=== PATIENT | male | born 1995 | race Hispanic/Latino ===

== ENCOUNTER 2019-06-04 00:06 | Emergency (ER) | payer OTHER ==
--- NOTE | 2019-06-04 08:27 | RAD ---
2 VIEWS RIGHT SHOULDER: Date: 06/04/19 INDICATION: Dislocation. FINDINGS: Limited evaluation as there are two provided frontal projections. The humeral head is located more me dially than typical overlying the scapular glenoid which may be on the basis of an anterior shoulder dislocation, although is limited on the provided views. Recommend clinical correlation in this regard . A discrete fracture is not identified. IMPRESSION: Medial location of the humeral head which may be on the basis of an anterior shoulder dislocation, li mited on the two provided views. Recommend clinical correlation. Imaging follow-up is also recommende d upon advent of alignment to exclude the possibility of associated osseous injury. POS: [facility]
== END 2019-06-04 01:27 | disposition home or self-care (01) ==
LOC: ERS 00:06
DX: S43.014A Anterior dislocation of right humerus, initial encounter (principal); W01.0XXA Fall on same level from slipping, tripping and stumbling without subsequent striking against object, initial encounter

== ENCOUNTER 2020-12-25 03:36 | Emergency (ER) | payer OTHER ==
[2020-12-25 04:14] LABS: Bilirubin Negative (Negative); Blood, Urine Negative (Negative); Clarity Clear (Clear); Glucose, Urine (Dipstick) Normal (Negative); Ketone, Urine Negative (Negative); Leukocyte Negative Leu/uL (Negative); Nitrite Negative (Negative); Protein, Urine (Dipstick) Negative (Neg-Trace); Specific Gravity, Urine 1.004 (1.002-1.036); Urobilinogen Normal mg/dL (Less than 2)
[2020-12-25 04:24] LABS: Amphetamine Not Detected (NotDetected); Barbiturates Screen Not Detected (NotDetected); Benzodiazepine Screen Not Detected (NotDetected); Cocaine Metabolite Screen Detected (NotDetected); Medtox Control Line Valid? VALID (VALID); Medtox Reader # READER 4; Methadone Not Detected (NotDetected); Methamphetamine Not Detected (NotDetected); Opiate Screen Not Detected (NotDetected); Oxycodone Screen Not Detected (NotDetected); Phencyclidine (PCP) Not Detected (NotDetected); THC/Cannabinoid Screen Not Detected (NotDetected); Tricyclic Screen Not Detected (NotDetected)
[2020-12-25 04:37] LABS: #Basophils 0.1 thou/uL (0.0-0.2); #Lymphocytes 1.9 thou/uL (1.20-3.40); #Monocytes 0.4 thou/uL (0.11-0.59); %Basophils 1.4 % (0.0-1.0); %Eosinophils 1.1 % (0.0-10.0); %Lymphocytes 42.7 % (21.0-51.0); %Monocytes 9.3 % (0.0-10.0); %Neutrophils 45.5 % (42.0-75.0); Hemoglobin 15.2 g/dL (14.0-18.0); Mean Corpuscular HGB CONC 34.5 g/dL (32.0-36.0); Mean Corpuscular Hemoglobin 35.2 pg (27.0-31.0); Mean Platelet Volume 6.4 fL (7.4-10.4); Platelet Count 362 thou/uL (130-400); RBC Distribution Width 13.2 % (11.5-14.5); Red Blood Cell (RBC) Count 4.33 mill/uL (4.70-6.10); White Blood Cell (WBC) Count 4.4 thou/uL (4.8-10.8)
[2020-12-25 04:49] LABS: Acetaminophen Less than 6.0 mcg/mL (10.0-30.0); Alcohol 359 mg/dL (Less than 10); Salicylate Less than 8.0 mg/dL (15.0-30.0)
[2020-12-25 04:51] LABS: ALT (SGPT) 15 U/L (8-55); AST (SGOT) 28 U/L (5-34); Albumin 4.3 g/dL (3.5-5.0); Alkaline Phosphatase 61 U/L (40-110); Anion Gap 11 mmol/L (10-20); BUN (Urea Nitrogen) 6 mg/dL (8.9-20.6); Bilirubin, Total 0.3 mg/dL (0.2-1.2); CK (CPK) 197 U/L (30-200); Calc. Creatinine Clearance 0 mL/min (70-130); Calcium 9.3 mg/dL (7.8-10.44); Carbon Dioxide 29 mmol/L (22-29); Chloride 104 mmol/L (98-107); Globulin 3.1 g/dL (2.4-3.5); Glucose 99 mg/dL (70-105); Potassium 3.9 mmol/L (3.5-5.1); Protein, Total 7.4 g/dL (6.0-8.3); Sodium 140 mmol/L (136-145)
== END 2020-12-25 05:00 ==
LOC: ERS 03:36
DX: R45.851 Suicidal ideations (principal); F10.129 Alcohol abuse with intoxication, unspecified; F17.290 Nicotine dependence, other tobacco product, uncomplicated; Y90.8 Blood alcohol level of 240 mg/100 ml or more
CPT/HCPCS: 36415; 80053; 80306; 80307; 81003; 82550; 84443; 85025; 93005

== ENCOUNTER 2021-04-15 23:24 | Emergency (ER) | payer SELFPAY ==
[2021-04-16 00:18] LABS: Bilirubin Negative (Negative); Blood, Urine Negative (Negative); Clarity Clear (Clear); Glucose, Urine (Dipstick) Normal (Negative); Ketone, Urine Negative (Negative); Leukocyte Negative Leu/uL (Negative); Nitrite Negative (Negative); Protein, Urine (Dipstick) Negative (Neg-Trace); Specific Gravity, Urine 1.006 (1.002-1.036); Urobilinogen Normal mg/dL (Less than 2)
[2021-04-16 00:27] LABS: Amphetamine Not Detected (NotDetected); Barbiturates Screen Not Detected (NotDetected); Benzodiazepine Screen Not Detected (NotDetected); Cocaine Metabolite Screen Detected (NotDetected); Methadone Not Detected (NotDetected); Methamphetamine Not Detected (NotDetected); Opiate Screen Not Detected (NotDetected); Oxycodone Screen Not Detected (NotDetected); Phencyclidine (PCP) Not Detected (NotDetected); THC/Cannabinoid Screen Detected (NotDetected); Tricyclic Screen Not Detected (NotDetected)
[2021-04-16 00:29] LABS: #Basophils 0.1 thou/uL (0.0-0.2); #Lymphocytes 2.4 thou/uL (1.20-3.40); #Monocytes 0.8 thou/uL (0.11-0.59); #Neutrophils 5.3 thou/uL (1.40-6.50); %Basophils 0.7 % (0.0-1.0); %Eosinophils 0.3 % (0.0-10.0); %Monocytes 9.1 % (0.0-10.0); %Neutrophils 61.9 % (42.0-75.0); Hemoglobin 17.7 g/dL (14.0-18.0); Mean Corpuscular HGB CONC 32.9 g/dL (32.0-36.0); Mean Corpuscular Hemoglobin 33.4 pg (27.0-31.0); Mean Platelet Volume 6.4 fL (7.4-10.4); Platelet Count 378 thou/uL (130-400); RBC Distribution Width 13.1 % (11.5-14.5); Red Blood Cell (RBC) Count 5.29 mill/uL (4.70-6.10); White Blood Cell (WBC) Count 8.5 thou/uL (4.8-10.8)
[2021-04-16 00:56] LABS: ALT (SGPT) 24 U/L (8-55); AST (SGOT) 26 U/L (5-34); Albumin 4.7 g/dL (3.5-5.0); Alkaline Phosphatase 78 U/L (40-110); Anion Gap 17 mmol/L (10-20); BUN (Urea Nitrogen) 6 mg/dL (8.9-20.6); Bilirubin, Total 1.3 mg/dL (0.2-1.2); Calc. Creatinine Clearance 0 mL/min (70-130); Calcium 10.1 mg/dL (7.8-10.44); Carbon Dioxide 28 mmol/L (22-29); Chloride 99 mmol/L (98-107); Globulin 3.7 g/dL (2.4-3.5); Glucose 100 mg/dL (70-105); Protein, Total 8.4 g/dL (6.0-8.3); Sodium 140 mmol/L (136-145)
[2021-04-16 01:06] LABS: Acetaminophen Less than 6.0 mcg/mL (10.0-30.0); Alcohol 267 mg/dL (Less than 10); CK (CPK) 142 U/L (30-200); Salicylate Less than 8.0 mg/dL (15.0-30.0)
[2021-04-16 02:17] LABS: SARS-CoV-2 NAA Rapid Test DETECTED (NotDetected)
== END 2021-04-16 13:10 | disposition home or self-care (01) ==
LOC: ERS 23:24
DX: U07.1 COVID-19 (principal); R45.851 Suicidal ideations; F10.129 Alcohol abuse with intoxication, unspecified; Y90.8 Blood alcohol level of 240 mg/100 ml or more; F19.10 Other psychoactive substance abuse, uncomplicated; F17.290 Nicotine dependence, other tobacco product, uncomplicated
CPT/HCPCS: 36415; 36416; 80053; 80306; 80307; 81003; 82550; 84443; 85025; 99284; U0002

== ENCOUNTER 2021-07-20 07:57 | Emergency (ER) | payer SELFPAY ==
[2021-07-20] MEDS ORDERED: Boostrix 0.5 ML (Tdap) VIAL ONE (10:13)
[2021-07-20] MEDS ORDERED: Bacitracin 1 PK ONE (11:23)
== END 2021-07-20 11:10 | disposition home or self-care (01) ==
LOC: ERS 07:57
DX: S61.217A Laceration without foreign body of left little finger without damage to nail, initial encounter (principal); Z23 Encounter for immunization; W27.8XXA Contact with other nonpowered hand tool, initial encounter; F17.290 Nicotine dependence, other tobacco product, uncomplicated
CPT/HCPCS: 90471; 90715

== ENCOUNTER 2021-08-04 14:48 | Emergency (ER) | payer SELFPAY ==
[2021-08-04 15:56] LABS: Bilirubin Negative (Negative); Blood, Urine Negative (Negative); Clarity Clear (Clear); Glucose, Urine (Dipstick) Normal (Negative); Ketone, Urine Negative (Negative); Leukocyte Negative Leu/uL (Negative); Nitrite Negative (Negative); Protein, Urine (Dipstick) Negative (Neg-Trace); Specific Gravity, Urine 1.019 (1.002-1.036); Urobilinogen 3 mg/dL (Less than 2); pH, Urine 7.5 (5.0-9.0)
[2021-08-04 16:02] LABS: Amphetamine Not Detected (NotDetected); Barbiturates Screen Not Detected (NotDetected); Benzodiazepine Screen Not Detected (NotDetected); Cocaine Metabolite Screen Detected (NotDetected); Methadone Not Detected (NotDetected); Methamphetamine Not Detected (NotDetected); Opiate Screen Not Detected (NotDetected); Oxycodone Screen Not Detected (NotDetected); Phencyclidine (PCP) Not Detected (NotDetected); THC/Cannabinoid Screen Detected (NotDetected); Tricyclic Screen Not Detected (NotDetected)
[2021-08-04 16:44] LABS: Hemoglobin 15.4 g/dL (14.0-18.0); Mean Corpuscular HGB CONC 32.8 g/dL (32.0-36.0); Mean Corpuscular Hemoglobin 34.6 pg (27.0-31.0); Mean Platelet Volume 6.5 fL (7.4-10.4); Platelet Count 308 thou/uL (130-400); RBC Distribution Width 13.2 % (11.5-14.5); Red Blood Cell (RBC) Count 4.44 mill/uL (4.70-6.10); White Blood Cell (WBC) Count 5.7 thou/uL (4.8-10.8)
[2021-08-04 16:45] LABS: #Lymphocytes 1.6 thou/uL (1.20-3.40); #Monocytes 0.4 thou/uL (0.11-0.59); #Neutrophils 3.5 thou/uL (1.40-6.50); %Basophils 0.8 % (0.0-1.0); %Eosinophils 0.7 % (0.0-10.0); %Lymphocytes 28.7 % (21.0-51.0); %Monocytes 7.8 % (0.0-10.0); %Neutrophils 62.1 % (42.0-75.0)
[2021-08-04 16:50] LABS: Acetaminophen Less than 6.0 mcg/mL (10.0-30.0); Alcohol 193 mg/dL (Less than 10); Salicylate Less than 8.0 mg/dL (15.0-30.0)
[2021-08-04 16:52] LABS: ALT (SGPT) 35 U/L (8-55); AST (SGOT) 47 U/L (5-34); Albumin 3.3 g/dL (3.5-5.0); Alcohol 197 mg/dL (Less than 10); Alkaline Phosphatase 53 U/L (40-110); Anion Gap 15 mmol/L (10-20); BUN (Urea Nitrogen) 4 mg/dL (8.9-20.6); Bilirubin, Total 0.4 mg/dL (0.2-1.2); CK (CPK) 682 U/L (30-200); Calc. Creatinine Clearance 0 mL/min (70-130); Calcium 8.4 mg/dL (7.8-10.44); Carbon Dioxide 23 mmol/L (22-29); Chloride 104 mmol/L (98-107); Globulin 2.6 g/dL (2.4-3.5); Glucose 79 mg/dL (70-105); Potassium 3.6 mmol/L (3.5-5.1); Protein, Total 5.9 g/dL (6.0-8.3); Sodium 138 mmol/L (136-145)
[2021-08-04 17:06] LABS: MDiff Complete? YES; Macrocytosis SLIGHT = 6-15 cells (100X) (0-5/hpf); Platelet Morphology Comment Appears Adequate
[2021-08-04 20:17] LABS: Alcohol 130 mg/dL (Less than 10); CK (CPK) 556 U/L (30-200)
== END 2021-08-05 03:30 | disposition home or self-care (01) ==
LOC: ERS 14:48
DX: F10.129 Alcohol abuse with intoxication, unspecified (principal); Y90.2 Blood alcohol level of 40-59 mg/100 ml; R45.851 Suicidal ideations; F17.290 Nicotine dependence, other tobacco product, uncomplicated
CPT/HCPCS: 36415; 80053; 80306; 80307; 81003; 82550; 84443; 85025; 93005

== ENCOUNTER 2021-08-19 14:38 | Emergency (ER) | payer OTHER, SELFPAY ==
[2021-08-19] MEDS ORDERED: Ketorolac Tromethamine 30 MG/ML VIAL ONE (15:54)
== END 2021-08-19 16:54 | disposition home or self-care (01) ==
LOC: ERS 14:38
DX: S43.401A Unspecified sprain of right shoulder joint, initial encounter (principal); S70.11XA Contusion of right thigh, initial encounter; F17.290 Nicotine dependence, other tobacco product, uncomplicated; V00.131A Fall from skateboard, initial encounter; Y93.51 Activity, roller skating (inline) and skateboarding; Y92.331 Roller skating rink as the place of occurrence of the external cause
CPT/HCPCS: 96372; J1885